=== PATIENT | female | born 1985 | race Caucasian/White ===

== ENCOUNTER 2021-10-23 08:31 | Outpatient (CLI) | payer BC, SELFPAY | END 2021-10-23 08:32 | disposition home or self-care (01) | PROVIDERS: PCP Family Medicine; Visit Provider Family Medicine | DX: Z01.419 Encounter for gynecological examination (general) (routine) without abnormal findings (principal); R32 Unspecified urinary incontinence; Z12.4 Encounter for screening for malignant neoplasm of cervix | CPT/HCPCS: 87086; 87624; 88175 ==